=== PATIENT | female | born 1945 | race Caucasian/White ===

== ENCOUNTER 2017-06-24 08:20 | Outpatient (CLI) | payer MEDICARE, OTHER ==
[~2017-06-24] VITALS: Ht 152.4 cm; Wt 68.0 kg
[~2017-06-24 08:20] MED LIST: ASPI81TA85 PO; ATOR1TAB21 PO; CALC600T60 PO; CO Q10CA PO; LR 1,000 ML IV SCH; OMEP40CA2 PO; PROBCAP4 PO
[2017-06-24] MEDS ORDERED: LIDOCAINE 2% INJ 100 MG/5 ML SDV (FOR ANES.) As Ordered ONE (08:25)
[2017-06-24] MEDS ORDERED: PROPOFOL 200 MG/20 ML VIAL As Ordered ONE ×2 (08:25→10:09)
--- NOTE | 2017-06-24 10:26 | ROOR ---
Patient Name: Kelly Bell Procedure Date: 06/24/2017 9:38 AM Date of : 1945 Age: 72 Room: [facility] Gender: Female Note Status: Finalized Procedure: Upper GI endoscopy Indications: Esophageal reflux Providers: Nav Esparza MD Referring MD: Kenyatta Chambers NP Requesting Provider: Medicines: Monitored Anesthesia Care Complications: No immediate complications. Procedure: Pre-Anesthesia Assessment: - Prior to the procedure, a History and Physical was performed, and patient medications and allergies were reviewed. The patient is competent. The risks and benefits of the procedure and the sedation options and risks were discussed with the patient. All questions were answered and informed consent was obtained. Patient identification and proposed procedure were verified by the physician, the nurse and the anesthesiologist in the procedure room. Mental Status Examination: alert and oriented. Airway Examination: normal oropharyngeal airway and neck mobility. CV Examination: regular rate and rhythm. Prophylactic Antibiotics: The patient does not require prophylactic antibiotics. Prior Anticoagulants: The patient has taken no previous anticoagulant or antiplatelet agents. ASA Grade Assessment: II - A patient with mild systemic disease. After reviewing the risks and benefits, the patient was deemed in satisfactory condition to undergo the procedure. The anesthesia plan was to use monitored anesthesia care (MAC). Immediately prior to administration of medications, the patient was re-assessed for adequacy to receive sedatives. The heart rate, respiratory rate, oxygen saturations, blood pressure, adequacy of pulmonary ventilation, and response to care were monitored throughout the procedure. The physical status of the patient was re-assessed after the procedure. The Endoscope was introduced through the mouth, and advanced to the second part of duodenum. The upper GI endoscopy was accomplished without difficulty. The patient tolerated the procedure well. Findings: The examined duodenum was normal. Multiple small sessile polyps with no bleeding and no stigmata of recent bleeding were found in the gastric body and on the greater curvature of the stomach. Biopsies were taken with a cold forceps for histology. The Z-line was regular with 2 small areas of redness but without ulceration. The exam of the esophagus was otherwise normal. Impression: - Normal examined duodenum. - Multiple gastric polyps. Biopsied. - Z-line regular with 2 small areas of redness bu without ulceration. Recommendation: - Discharge patient to home. - Resume regular diet. - Continue present medications. - Await pathology results. - Telephone endoscopist for pathology results in 1 week. Nav Esparza MD 06/24/2017 10:26:35 AM Number of Addenda: 0 Note Initiated On: 06/24/2017 9:38 AM Estimated Blood Loss: Estimated blood loss was minimal.
[2017-06-24 10:40] VITALS: BP 123/87
--- NOTE | 2017-06-24 10:59 | ROOR ---
Patient Name: Kelly Bell Procedure Date: 06/24/2017 9:39 AM Date of : 1945 Age: 72 Room: [facility] Gender: Female Note Status: Finalized Procedure: Colonoscopy Indications: Screening for colorectal malignant neoplasm, Last colonoscopy 10 years ago Providers: Nav Esparza MD Referring MD: Kenyatta Chambers NP Requesting Provider: Medicines: Monitored Anesthesia Care Complications: No immediate complications. Procedure: Pre-Anesthesia Assessment: - Prior to the procedure, a History and Physical was performed, and patient medications and allergies were reviewed. The patient is competent. The risks and benefits of the procedure and the sedation options and risks were discussed with the patient. All questions were answered and informed consent was obtained. Patient identification and proposed procedure were verified by the physician, the nurse and the anesthesiologist in the procedure room. Mental Status Examination: alert and oriented. Airway Examination: normal oropharyngeal airway and neck mobility. CV Examination: regular rate and rhythm. Prophylactic Antibiotics: The patient does not require prophylactic antibiotics. Prior Anticoagulants: The patient has taken no previous anticoagulant or antiplatelet agents. ASA Grade Assessment: II - A patient with mild systemic disease. After reviewing the risks and benefits, the patient was deemed in satisfactory condition to undergo the procedure. The anesthesia plan was to use monitored anesthesia care (MAC). Immediately prior to administration of medications, the patient was re-assessed for adequacy to receive sedatives. The heart rate, respiratory rate, oxygen saturations, blood pressure, adequacy of pulmonary ventilation, and response to care were monitored throughout the procedure. The physical status of the patient was re-assessed after the procedure. The was introduced through the anus and advanced to the cecum, identified by appendiceal orifice and ileocecal valve. The colonoscopy was somewhat difficult due to significant looping. The patient tolerated the procedure well. The quality of the bowel preparation was excellent. Findings: The perianal and digital rectal examinations were normal. Multiple medium-mouthed diverticula were found in the sigmoid colon. A 5 mm polyp was found in the distal sigmoid colon. The polyp was sessile. The polyp was removed with a piecemeal technique using a hot biopsy forceps. Resection and retrieval were complete. The exam was otherwise without abnormality. Impression: - Diverticulosis in the sigmoid colon. - One 5 mm polyp in the distal sigmoid colon, removed piecemeal using a hot biopsy forceps. Resected and retrieved. - The examination was otherwise normal. Recommendation: - Discharge patient to home. - Resume previous diet. - Continue present medications. - Await pathology results. - Telephone endoscopist for pathology results in 1 week. - If the pathology report reveals adenomatous tissue, then repeat the colonoscopy for surveillance in 5 years. Nav Esparza MD 06/24/2017 10:58:53 AM Number of Addenda: 0 Note Initiated On: 06/24/2017 9:39 AM Estimated Blood Loss: Estimated blood loss: none.
== END 2017-06-24 10:52 | disposition home or self-care (01) ==
LOC: M OPP 08:20
PROVIDERS: ATTEND Surgery
DX: Z12.11 Encounter for screening for malignant neoplasm of colon (principal); D12.5 Benign neoplasm of sigmoid colon; K57.30 Diverticulosis of large intestine without perforation or abscess without bleeding; K21.9 Gastro-esophageal reflux disease without esophagitis; K31.7 Polyp of stomach and duodenum; E78.5 Hyperlipidemia, unspecified; R12 Heartburn; Z78.0 Asymptomatic menopausal state; N32.81 Overactive bladder; Z87.891 Personal history of nicotine dependence; Z79.82 Long term (current) use of aspirin; Z79.899 Other long term (current) drug therapy

== ENCOUNTER 2018-06-26 12:07 | Inpatient (IN) | payer MEDICARE, OTHER ==
[2018-06-26 12:54] LABS: BASO # 0.1 10^3/uL (0.0-0.2); BASO % 0.8 % (0.0-1.0); EOS # 0.2 10^3/uL (0.0-0.50); EOS % 2.8 % (0.0-3.0); HEMATOCRIT 41.4 % (36.0-47.0); HEMOGLOBIN 13.7 g/dl (12.0-15.5); IMMATURE GRANULOCYTE % 0.3 % (0-3.0); LYMPH # 2.3 10^3/uL (1.5-4.5); LYMPH % 29.4 % (24.0-44.0); MEAN CORPUSCULAR HEMOGLOBIN 30.6 pg (27.0-33.0); MEAN CORPUSCULAR HGB CONC 33.1 g/dl (32.0-36.5); MEAN CORPUSCULAR VOLUME 92.6 fl (80.0-96.0); MONO # 0.5 10^3/uL (0.0-0.8); MONO % 6.5 % (0.0-5.0); NEUTROPHILS # 4.7 10^3/uL (1.8-7.7); NEUTROPHILS % 60.2 % (36.0-66.0); PLATELET COUNT, AUTOMATED 250 10^3/uL (150-450); RED BLOOD COUNT 4.47 10^6/uL (4.00-5.40); RED CELL DISTRIBUTION WIDTH 12.5 % (11.5-14.5); WHITE BLOOD COUNT 7.7 10^3/uL (4.0-10.0)
[2018-06-26 13:01] LABS: ANION GAP 8 MEQ/L (8-16); BLOOD UREA NITROGEN 15 MG/DL (7-18); CALCIUM LEVEL 9.2 MG/DL (8.8-10.2); CARBON DIOXIDE LEVEL 28 MEQ/L (21-32); CHLORIDE LEVEL 106 MEQ/L (98-107); CREATININE FOR GFR 0.78 MG/DL (0.55-1.30); GLOMERULAR FILTRATION RATE > 60.0 (>39); GLUCOSE, FASTING 95 MG/DL (70-100); POTASSIUM SERUM 3.9 MEQ/L (3.5-5.1); SODIUM LEVEL 142 MEQ/L (136-145)
[2018-06-26] MEDS ORDERED: ACETAMINOPHEN 325 MG TAB PO (13:30)
[2018-06-26] MEDS: MORPHINE 2 MG/ML 1ML SYRINGE (J2270) IV (13:36)
[2018-06-26] MEDS: ONDANSETRON 4MG/2ML VIAL (J2405) IV (13:36)
[2018-06-26] MEDS ORDERED: LIDOCAINE 2% INJ 100 MG/5 ML SDV (FOR ANES.) As Ordered (17:48)
[2018-06-26] MEDS ORDERED: PROPOFOL 200 MG/20 ML VIAL As Ordered ×3 (17:48→20:29)
[2018-06-26] MEDS ORDERED: KETOROLAC 60 MG/2 ML VIAL (J1885) As Ordered (17:48)
[2018-06-26] MEDS ORDERED: ONDANSETRON 4MG/2ML VIAL (J2405) As Ordered (17:48)
[2018-06-26] MEDS ORDERED: dexameTHASONE 4 MG/ML 1ML VIAL (J1100) As Ordered (17:48)
[2018-06-26] MEDS ORDERED: fentaNYL 100 MCG/2 ML INJECTION (J3010) As Ordered (17:49)
[2018-06-26] MEDS ORDERED: MIDAZOLAM INJ 2 MG/2 ML VIAL (J2250) As Ordered ×2 (17:49→18:25)
[2018-06-26] MEDS: ceFAZolin 1GM INJ (J0690 PER 500MG) As Ordered (18:20)
[2018-06-26] MEDS ORDERED: ePHEDrine SULFATE 25 MG/5 ML(5MG/ML) SYRINGE As Ordered (18:29)
[2018-06-26] MEDS ORDERED: PHENYLephrine HCL 500 MCG/5 ML (100MCG/ML) SYRINGE (J2370) As Ordered (20:19)
[2018-06-26] MEDS: LIDOCAINE 1% SDV INJ 30 ML VIAL As Ordered (20:20)
[2018-06-26] MEDS ORDERED: ONDANSETRON 4MG/2ML VIAL (J2405) IV (21:00)
[2018-06-26] MEDS ORDERED: fentaNYL 100 MCG/2 ML INJECTION (J3010) IV (21:00)
[2018-06-26] MEDS ORDERED: NORCO, ANEXSIA 5/325MG TABLET (HYDROcodone/ACETAMINOPHEN) PO (21:00)
[2018-06-26] MEDS ORDERED: MORPHINE 4 MG/ML 1ML VIAL/SYRINGE (J2270) IV ×2 (21:00)
[2018-06-26] MEDS ORDERED: PERCOCET 5MG/325MG TAB PO (21:30)
[2018-06-26] MEDS: ATORVASTATIN 20 MG TAB PO (22:00)
[2018-06-26] MEDS: PERCOCET 5MG/325MG TAB PO (22:01)
[2018-06-26] MEDS: NS 1,000 ML IV (22:02)
[2018-06-27] MEDS: ceFAZolin SOD 1 GM in D5W MINI-BAG PLUS 50 ML IV ×2 (02:32→10:43)
[2018-06-27] MEDS: PERCOCET 5MG/325MG TAB PO ×2 (02:33→06:30)
[2018-06-27] MEDS: LR 1,000 ML IV (08:54)
[2018-06-27] MEDS: ONDANSETRON 4MG/2ML VIAL (J2405) IV (08:58)
[2018-06-27] MEDS ORDERED: ASPIRIN 81 MG CHEW TABLET PO (09:00)
[2018-06-27] MEDS: OMEPRAZOLE 20 MG CAP PO (10:44)
[2018-06-27] MEDS: ACETAMINOPHEN TAB 650MG DOSE (2X325MG) PO (11:28)
[2018-06-27] MEDS ORDERED: ACETAMINOPHEN 500 MG TAB PO (15:00)
[2018-06-27] MEDS: traMADol 50 MG TAB PO ×2 (15:22→22:31)
[2018-06-27] MEDS: ACETAMINOPHEN 500 MG TAB PO ×2 (16:45→20:40)
[2018-06-27] MEDS: RIVAROXABAN 10 MG TAB (XARELTO) PO (18:07)
[2018-06-27] MEDS: ATORVASTATIN 20 MG TAB PO (20:38)
[2018-06-28] MEDS: traMADol 50 MG TAB PO ×2 (05:07→12:51)
[2018-06-28] MEDS: OMEPRAZOLE 20 MG CAP PO (09:08)
[2018-06-28] MEDS: ACETAMINOPHEN 500 MG TAB PO (09:08)
== END 2018-06-28 13:55 | disposition home or self-care (01) | DRG 494 ==
LOC: M SDC 06-27 07:59 → M MS5PR 06-27 08:00 → M ED 12:07 → M SDC 14:30 → M MS5PR 21:40
PROC: 0QSJ04Z Reposition Right Fibula with Internal Fixation Device, Open Approach (ICD-10-PCS; principal; 2018-06-26 18:14)
DX: S82.851A Displaced trimalleolar fracture of right lower leg, initial encounter for closed fracture (principal); S82.425A Nondisplaced transverse fracture of shaft of left fibula, initial encounter for closed fracture; K21.9 Gastro-esophageal reflux disease without esophagitis; E78.00 Pure hypercholesterolemia, unspecified; Z79.899 Other long term (current) drug therapy; W17.89XA Other fall from one level to another, initial encounter; Y92.89 Other specified places as the place of occurrence of the external cause; Y99.8 Other external cause status

== ENCOUNTER 2025-07-21 09:05 | Day surgery (SDC) | payer MEDICARE, OTHER ==
[~2025-07-21] VITALS: Ht 152.4 cm; Wt 72.2 kg
[~2025-07-21 09:05] MED LIST changes: +ACET-1349 PO; +ASPI81TA26 PO; -ASPI81TA85 PO; +ASPI81TA86 PO; +ISTA0.5S OU; -LR 1,000 ML IV SCH; +MAGN250T7 PO; +NEXI40CA PO; -OMEP40CA2 PO; +OMEP40CA4 PO; +OSTETAB3 PO; +PERC5TAB12 PO; +TRAM50TA2 PO; +TURM1CAP7 PO; +VITA100067 PO; +VITA100093 PO; +VITA100T51 PO; +XALA0.007 OU; +XARE10TA PO
[2025-07-21] MEDS ORDERED: LIDOCAINE 2% 100 MG/5 ML SDV (FOR ANES.) As Ordered ONE (10:21)
[2025-07-21 10:33] VITALS: TEMP 97
[2025-07-21 10:50] VITALS: BP 120/61; O2SAT 98
== END 2025-07-21 11:01 | disposition home or self-care (01) ==
LOC: M OPP 09:05
PROVIDERS: ATTEND Surgery
DX: K63.5 Polyp of colon (principal); K57.30 Diverticulosis of large intestine without perforation or abscess without bleeding; Z86.0100 Personal history of colon polyps, unspecified; Z91.048 Other nonmedicinal substance allergy status; Z79.82 Long term (current) use of aspirin; Z79.899 Other long term (current) drug therapy